=== PATIENT | female | born 1950 | race Caucasian/White ===

== ENCOUNTER → 2023-05-19 06:38 | Day surgery (SDC) | payer MEDICARE, OTHER, SELFPAY | LOC: GI 06:38 | PROVIDERS: ATTENDING PHYSICIAN Internal Medicine Gastroenterology | DX: K57.30 Diverticulosis of large intestine without perforation or abscess without bleeding (principal); D12.0 Benign neoplasm of cecum; Z86.010 Personal history of colon polyps; Z80.0 Family history of malignant neoplasm of digestive organs; Z09 Encounter for follow-up examination after completed treatment for conditions other than malignant neoplasm | CPT/HCPCS: 45380; 88305 ==

== ENCOUNTER → 2024-03-02 11:09 | Outpatient (REF) | payer MEDICARE, OTHER, SELFPAY | LOC: HWWDC 11:09 | PROVIDERS: ATTENDING PHYSICIAN Family Medicine | DX: Z12.31 Encounter for screening mammogram for malignant neoplasm of breast (principal) | CPT/HCPCS: 77063; 77067 ==

== ENCOUNTER → 2025-03-02 09:23 | Outpatient (REF) | payer MEDICARE, OTHER, SELFPAY | LOC: WDC 09:23 | PROVIDERS: ATTENDING PHYSICIAN Obstetrics & Gynecology; FAMILY PHYSICIAN Family Medicine | DX: Z12.31 Encounter for screening mammogram for malignant neoplasm of breast (principal) | CPT/HCPCS: 77063; 77067 ==